=== PATIENT | female | born 1950 | race African-American/Black ===

== ENCOUNTER 2018-08-31 10:35 | Emergency (ER) | payer OTHER ==
[~2018-08-31] VITALS: Ht 157.5 cm; Wt 81.7 kg
[2018-08-31 11:16] LABS: URINE BILIRUBIN NEGATIVE (Negative); URINE BLOOD 2+ (Negative); URINE CLARITY CLEAR; URINE COLOR YELLOW; URINE GLUCOSE-RANDOM* NEGATIVE (Negative); URINE KETONES NEGATIVE (Negative); URINE LEUKOCYTES-REFLEX NEGATIVE (Negative); URINE NITRITE-REFLEX NEGATIVE (Negative); URINE PROTEIN (DIPSTICK) NEGATIVE (Negative); URINE UROBILINOGEN 0.2 E.U./dl (0.2-1.0)
[2018-08-31 11:24] LABS: SQUAMOUS 0-3 Few /LPF (0-3)
[2018-08-31 11:25] LABS: BACTERIA-REFLEX None Seen /HPF (None Seen); CASTS None Seen /LPF (None Seen); CRYSTALS None Seen /LPF (None Seen); URINE RBC 0-2 Rare /HPF (0-2); URINE WBC-REFLEX 0-5 Rare /HPF (0-5)
[2018-08-31 11:54] LABS: HEMATOCRIT 38.1 % (37.0-47.0); HEMOGLOBIN 12.8 gm/dL (12.0-15.0); MCH 27.4 pg (26.0-34.0); MCHC 33.5 g/dL (28.0-37.0); MCV 81.6 fL (80.0-100.0); RBC 4.67 mil/uL (4.20-5.00); RDW 15.9 % (10.5-14.5); WBC 10.1 thou/uL (4.0-11.0)
[2018-08-31 12:04] LABS: CALCIUM 9.6 mg/dL (8.5-10.1); CREATININE 0.9 mg/dL (0.6-1.0); POTASSIUM 3.8 mmol/L (3.5-5.1)
[2018-08-31 12:11] LABS: ALBUMIN 3.3 g/dL (3.4-5.0); TOTAL BILIRUBIN 0.5 mg/dL (<0.1-1.0); TOTAL PROTEIN 7.9 g/dL (6.4-8.2)
[2018-08-31] MEDS ORDERED: FLAGYL500 MG PO (13:55)
[2018-08-31] MEDS ORDERED: CIPROFLOXACIN500 M1 PO (13:55)
[2018-08-31] MEDS ORDERED: NORCO 5-325 TA1 EACH PO (13:55)
[2018-08-31 14:25] VITALS: BP 160/72
== END 2018-08-31 14:33 | disposition home or self-care (01) ==
LOC: ER 10:35
PROVIDERS: Emergency Medicine
DX: K57.92 Diverticulitis of intestine, part unspecified, without perforation or abscess without bleeding (principal); I10 Essential (primary) hypertension; E78.00 Pure hypercholesterolemia, unspecified

== ENCOUNTER → 2021-05-16 | Outpatient (CLI) | payer OTHER ==
[~2021-05-16] MED LIST: CIPROFLOXACIN500 M1 PO; FLAGYL500 MG PO; NORCO 5-325 TA1 EACH PO
== END ==
LOC: SJCVC 13:28 → SJCVCIMAG 13:28
PROVIDERS: ATTEND Internal Medicine
DX: I08.2 Rheumatic disorders of both aortic and tricuspid valves (principal); E78.00 Pure hypercholesterolemia, unspecified; R60.0 Localized edema; I27.20 Pulmonary hypertension, unspecified; Z13.220 Encounter for screening for lipoid disorders; E78.5 Hyperlipidemia, unspecified; I10 Essential (primary) hypertension; G47.30 Sleep apnea, unspecified; R06.00 Dyspnea, unspecified; Z79.899 Other long term (current) drug therapy; Z79.891 Long term (current) use of opiate analgesic

== ENCOUNTER → 2021-06-22 | Outpatient (CLI) | payer OTHER | LOC: SJCVCIMAG 07:53 | PROVIDERS: ATTEND Internal Medicine | DX: I10 Essential (primary) hypertension (principal); J45.909 Unspecified asthma, uncomplicated; E78.00 Pure hypercholesterolemia, unspecified; E78.5 Hyperlipidemia, unspecified; G43.909 Migraine, unspecified, not intractable, without status migrainosus; M79.605 Pain in left leg; M79.604 Pain in right leg; Z79.899 Other long term (current) drug therapy ==

== ENCOUNTER → 2021-07-18 | Outpatient (CLI) | payer OTHER | LOC: SJCVC 13:22 | PROVIDERS: ATTEND Internal Medicine | DX: I10 Essential (primary) hypertension (principal); E78.5 Hyperlipidemia, unspecified; G47.30 Sleep apnea, unspecified ==

== ENCOUNTER → 2021-08-15 | Outpatient (CLI) | payer OTHER | LOC: SJCVC 12:58 | PROVIDERS: ATTEND Internal Medicine | DX: E78.00 Pure hypercholesterolemia, unspecified (principal); J45.909 Unspecified asthma, uncomplicated; E78.5 Hyperlipidemia, unspecified; I10 Essential (primary) hypertension; G47.30 Sleep apnea, unspecified; Z79.899 Other long term (current) drug therapy ==